=== PATIENT | male | born 1955 | race Caucasian/White ===

== ENCOUNTER 2021-06-16 11:09 | Emergency (ER) | payer SELFPAY ==
[~2021-06-16] VITALS: Ht 170.2 cm; Wt 77.1 kg
--- NOTE | 2021-06-16 11:21 | NUR ---
PT C/O scalp laceration s/p slip and fall 3 days ago. daughter wants eval. SCALP LACERATION - NOW SCABBED, SKIN CLOSED, NO ACTIVE BLEEDING
[2021-06-16] MEDS ORDERED: TDAP [DIPH/PERTUSSIS/TET] 0.5 ML VIAL IM ONE ×2 (12:00→12:13)
[2021-06-16] MEDS ORDERED: BACITRACIN ZINC OINT PACKET 1 EA PACKET TP ONE ×2 (12:00→12:13)
--- NOTE | 2021-06-16 12:23 | NUR ---
Patient discharged to home in stable condition. Written and verbal after care instructions given. Patient verbalizes understanding of instruction. pt. ambulatory with a steady gait. WOUND CARE DONE.
[2021-06-16 13:04] VITALS: BP 125/45
== END 2021-06-16 12:38 | disposition home or self-care (01) ==
LOC: ER 11:09
DX: S01.01XD Laceration without foreign body of scalp, subsequent encounter (principal); E11.9 Type 2 diabetes mellitus without complications; W01.0XXD Fall on same level from slipping, tripping and stumbling without subsequent striking against object, subsequent encounter
CPT/HCPCS: 90715

== ENCOUNTER 2023-05-13 10:33 | Outpatient (CLI) | payer MEDICARE, OTHER ==
[2023-05-13] MEDS ORDERED: COLLAGENASE 5 GM TUBE UD TP ONE (10:59)
== END 2023-05-13 23:59 | disposition home health service (06) ==
LOC: WOU 10:33
PROVIDERS: ATTEND Podiatrist Foot & Ankle Surgery
DX: E11.621 Type 2 diabetes mellitus with foot ulcer (principal); L97.524 Non-pressure chronic ulcer of other part of left foot with necrosis of bone; E11.42 Type 2 diabetes mellitus with diabetic polyneuropathy; E11.69 Type 2 diabetes mellitus with other specified complication; M86.172 Other acute osteomyelitis, left ankle and foot; Z79.84 Long term (current) use of oral hypoglycemic drugs; Z79.899 Other long term (current) drug therapy
CPT/HCPCS: 11043